=== PATIENT | female | born 1995 | race Caucasian/White ===

== ENCOUNTER 2020-12-20 09:00 | Outpatient (RCR) | payer BC, OTHER, SELFPAY ==
--- NOTE | 2020-12-20 10:00 | BH.SGPN.GN ---
Behaviors/Verbalizations/Mental Status: []Client alert and oriented, casually dressed and groomed. Eye contact good. Motor activity appropriate. Speech within normal limits. Affect congruent, mood anxious and depressed. Thoughts linear, logical, no signs of hallucinations or delusions. Client Response/Progress/Benefit: [] Client first day in IOP tx, appeared to engage well. She was an active participant AEB contributing to discussion, taking notes, and engaging in group activity. Connected with the topic of pitfalls and indicated that pitfalls can prevent be difficult to overcome when they require patience. Client contributed to the group discussion on barriers that prevent from choosing a healthier path to mental wellness such as pitfalls. Group worked together to identify examples of personal pitfalls which included; resentment, anger, isolating, distortions, and unhealthy coping. Client identified overthinking and isolation as personal pitfalls that have inhibited progress in the past. Engaged during the activity by taking on a leadership role, offering encouragement, and providing feedback throughout. Client benefited from group as she learned to better identify potential barriers to improving mental health symptoms. Client will continue IOP tx to increase the consistent understanding of healthy coping skills, reduce mental health sx, and prevent decompensation. Narrative Note: []
--- NOTE | 2020-12-20 11:10 | BH.SGPN.GN ---
Behaviors/Verbalizations/Mental Status: []Client alert and oriented, neatly dressed, hygiene tended to. Eye contact good. Motor activity appropriate. speech and tone WNL. Affect constricted, mood anxious. Thoughts linear, logical, no signs of hallucinations or delusions. Client Response/Progress/Benefit: []Client receptive of session, engaged throughout AEB client listening to discussion and taking notes. Client completed a worksheet where client identified personal pitfalls impacting mental health progress. Client?s pitfalls included: personalization, isolation, lack of communication, lack of boundaries, and resentment. Attentive and contributing during group brainstorm of strategies to overcome pitfalls. Client will work on overcoming her pitfall of lack of boundaries by setting small goals and using opposite action. Benefited from identifying personal pitfalls and strategies to overcome these pitfalls. Client?s first day of IOP tx. Will continue IOP tx to prevent decompensation, learn healthy coping skills, and improve daily functioning. Narrative Note: []
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
--- NOTE | 2020-12-22 13:53 | BH.DR.ITP ---
Initial Treatment Plan - Patient Information Visit Information: ADMISSION DATE: EXPECTED LOS: 4-6 weeks - Problems/Symptoms Problem #1:: Depression and erratic moods Symptom:: Sadness, crying, hopelessness, low motivation, biological disruption of sleep, decreased concentration, guilt, passive thoughts of . History of possible hypomanic symptoms. Problem #2:: Anxiety Symptom:: Rumination, worry, panic attacks at night, flashbacks, reexperiencing, avoidance
== END 2020-12-22 23:59 ==
LOC: BHIOP 09:00
PROVIDERS: Referring Provider Psychiatry & Neurology Psychiatry; Visit Provider Psychiatry & Neurology Psychiatry
DX: F31.9 Bipolar disorder, unspecified (principal); F43.10 Post-traumatic stress disorder, unspecified; F41.8 Other specified anxiety disorders; Z79.899 Other long term (current) drug therapy
CPT/HCPCS: H0035; 90853

== ENCOUNTER 2020-12-23 09:00 | Outpatient (RCR) | payer BC, OTHER, SELFPAY ==
--- NOTE | 2020-12-23 09:00 | BH.SGPN.GN ---
Behaviors/Verbalizations/Mental Status: []Eye contact is good. Alert and oriented. Motor activity is appropriate. Appearance is neat and casual. grooming is appropriate. Speech is Appropriate. Mood is anxious and depressed. Affect is congruent. Thoughts are linear and logical. No evidence of psychosis or hallucinations. Denies any SI, plan, or intent as of this date. Client Response/Progress/Benefit: [] Pt engaged in session AEB listening to others, providing supportive feedback, and willingness to share thoughts and feelings with group. Pt noted feeling ?overwhelmed? on this date and attributes it to ongoing difficulties in managing her online classes. Reports this has been a consistent struggle this semester. Receptive of supportive feedback provided by group. Client did well to identify strategies for improving management of current stressor. Additionally, able to identify current mental health wins which included: plans to spend time with family for [place] and continuing to make her mental health a priority. Able to identify skills used as: thought challenging and opposite action. Recommended ongoing IOP tx to promote healthy change behaviors, improve sx management, and prevent decompensation. Narrative Note: []
--- NOTE | 2020-12-23 10:15 | BH.SGPN.GN ---
Behaviors/Verbalizations/Mental Status: []Client alert and oriented, neatly dressed and groomed. Eye contact good. Motor activity appropriate. Speech within normal limits. Affect congruent, mood dysthymic. Thoughts linear, logical, no signs of hallucinations or delusions. Client Response/Progress/Benefit: []Client responded well to session, attentive during discussion, engaged in activity and provided some input during discussion. Pt stated that change is hard in the moment but often times the outcome is worth it. Pt stated she had to make a change by cutting off a friendship that was unhealthy. Pt reported that friend started sharing client's secrets to others, which proved to client it was a necessary change. Worked with the group to identify barriers to making change. Engaged in activity about identifying emotions that impact change process. Attentive during education on change cycle. Benefited from increased awareness and understanding of emotions, benefits, and barriers related to change. Will continue IOP tx to increase healthy coping, improve confidence and prevent decompensation.
--- NOTE | 2020-12-23 11:15 | BH.SGPN.GN ---
Behaviors/Verbalizations/Mental Status: []Client was alert and oriented, casually dressed and groomed. Eye contact good. Motor activity appropriate. Speech within normal limits. Affect constricted, mood depressed. Thoughts linear, logical, no evidence of hallucinations or delusions. Client Response/Progress/Benefit: []Client responded well to session AEB taking notes and contributing to discussion. Client contributed during psychoeducation on the change process and different emotions in each stage of change. Client also contributed during the activity. Client identified a change she would like to make to improve her mental health which was to have a better sleep schedule. Client reports this will reduce stress and fatigue. Client reports belief she is in the preparation stage as she recognizes the need for change and is willing to take small steps. Client also identified her barriers and participated in a small group discussion to problem-solve solutions to barriers. Appeared to benefit from identifying what stage of change client is in and creating a small goal. First week of IOP tx, actively participating in group. Will continue IOP tx to prevent decompensation, improve mood stability, and learn healthy coping skills. Narrative Note: []
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
--- NOTE | 2020-12-23 21:51 | BH.MTP_ITS ---
Master Treatment Plan - Patient Information Program Physician:: Dr. Aguilar Primary Therapist:: Maribell Pereyra, [facility] - Psychiatric Diagnoses Psychiatric Diagnoses:: Bipolar, NOS; trichotillomania; PTSD; generalized anxiety disorder Diagnosis Code(s):: F 31.9 - Estimated LOS Estimated LOS (in weeks):: 6 Problem/Goal #1 - Problem/Goal #1 Stated Goal:: Client will improve mood stability and decrease depressive symptoms due to Bipolar Disorder through Intensive Outpatient Program. Description of Barriers: Potential barriers to treatment include: negative thought patterns, stress about marriage, inappropriate guilt, low motivation, putting others before herself, and hopelessness. Functional Impact: Pt self-referred to IOP due to increasing depression and anxiety over the past few months. Endorses depressed mood with low motivation, isolation, crying, hopelessness, guilt, decrease sleep, low energy, and decreased concentration. Pt reports passive thoughts of , denies active suicidal ideation, plan or intention. Endorses negative ruminations and panic attacks about one time per week. Pt?s mental health symptoms interfering with social, familial and home functioning. - Objectives Objective #1 Stated Objective: Client will learn and utilize 2-3 healthy coping strategies to manage depressive symptoms and erratic moods. Interventions: Therapist will utilize CBT techniques to assist client with understanding the connection between thoughts, feelings and behaviors. Education will be provided on behavioral activation. Therapist will assist client in learning internal coping strategies to manage depressive symptoms, along with helping client identify triggers. Discharge Criteria: Client will have achieved this goal when can verbalize and practiced at least 2 healthy coping strategies that successfully manage depressive symptoms and reports improved mood stability. Target Date: 02/02/21 Review Date: 01/19/21 Objective #2 Stated Objective: Pt will decrease depressive symptoms AEB pt?s score on the DSM 5 cross-cutting measure and improve pt?s daily functioning. Interventions: Through groups and individual therapy, pt will be provided with education on cognitive distortions, mistaken beliefs, and identifying and combating negative self-talk. Therapist will assist pt with getting back into the activities she once enjoyed as well as increasing healthy coping strategies. Discharge Criteria: Pt will have met this goal when pt?s score on the DSM 5 cross cutting measure for depression has been decreased and per pt?s report daily functioning has improved. Target Date: 02/02/21 Review Date: 01/19/21 Problem/Goal #2 - Problem/Goal #2 Stated Goal:: Stabilize anxiety level while increasing ability to function on daily basis. Description of Barriers: Potential barriers to treatment include: negative thought patterns, stress about marriage, inappropriate guilt, low motivation, putting others before herself, and hopelessness. Functional Impact: Pt self-referred to IOP due to increasing depression and anxiety over the past few months. Endorses depressed mood with low motivation, isolation, crying, hopelessness, guilt, decrease sleep, low energy, and decreased concentration. Pt reports passive thoughts of , denies active suicidal ideation, plan or intention. Endorses negative ruminations and panic attacks about one time per week. Pt?s mental health symptoms interfering with social, familial and home functioning. - Objectives Objective #1 Stated Objective: Client will learn and implement 2-3 calming skills to reduce overall anxiety and manage anxiety symptoms. Interventions: Therapist will teach client calming/relaxation skills and assign client homework which practices relaxation skills daily.? Discharge Criteria: Client will have achieved this goal when can verbalize at least 2 calming skills and implement those skills.? Target Date: 02/02/21 Review Date: 01/19/21 Objective #2 Stated Objective: Pt will decrease anxious symptoms AEB pt?s score on the DSM 5 cross-cutting measure improve pt?s daily functioning. Interventions: Through groups and individual therapy, pt will be provided education about anxiety?s impact on body and common physiological reaction to anxiety. Therapist will teach pt appropriate breathing techniques and build healthy coping skills to manage daily anxieties. Discharge Criteria: Pt will have met this goal when pt?s score on the DSM 5 cross cutting measure for anxiety has been decreased and per pt?s report daily functioning has improved. Target Date: 02/02/21 Review Date: 01/19/21
--- NOTE | 2020-12-29 09:00 | BH.SGPN.GN ---
This psychotherapy group was provided via telehealth using two-way, real-time interactive telecommunication technology between the patients and the provider. The interactive telecommunication technology included audio and video. The patient was offered telemedicine as an option for care delivery during the COVID-19 pandemic and consented to this option. Patient location: [place] Provider located at [facility] Behaviors/Verbalizations/Mental Status: []Client alert and oriented, casual in appearance. Eye contact fair. Motor activity appropriate. Speech within normal limits. Affect congruent. euthymic. Thoughts linear, logical, no signs of hallucinations or delusions. Pt denied thoughts of suicide or intent per pt's symptom tracker. Client Response/Progress/Benefit: [] Patient responded well to session as evidenced by her contributing thoughts feelings and listen attentively to others. Patient stated she was able to set boundaries with her younger sister by telling her sister she did not want to see her at this time. Patient elaborated that her sister is actively using drugs and finds it unhealthy to be around her sister at this time. 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 Patient identified feeling empowered. Patient to continue IOP level care to increase healthy coping skills, challenged her thoughts, and prevent decompensation. Narrative Note: []
--- NOTE | 2020-12-29 10:00 | BH.SGPN.GN ---
Behaviors/Verbalizations/Mental Status: [] Eye contact is good. Motor activity is appropriate. Appearance is casual. Speech is Appropriate. Mood is anxious. Affect is congruent. Thoughts are linear and logical. No evidence of psychosis. Client Response/Progress/Benefit: [] Patient was an active participant in group discussion and activity. Provided insight into discussion on defining self-care and its benefits for mental wellness. Also participated and provided feedback on consequences of not performing self-care which included; consistent stress,increased irritability, physical health issues, and negative impact to relationships, work, and other aspects of functioning. After they identified the benefits and consequences group identified the obstacles and myths associated with self-care which keep them from performing self-care. Peers and pt identified 10 myths of self-care which included; You don't deserve it; You don't need it; Can't do it unless everything else is completed; Its selfish; Time-consuming; [place]; It has to be fun; Self-care ignores others. Pt then joined a small group and challenged these myths among its members. Benefited from group by increasing awareness and benefits of self-care. Pt will continue in IOP to prevent decompensation, increase healthy coping, and stabilize mood. Narrative Note: [] This psychotherapy group was provided via telehealth using two-way, real-time interactive telecommunication technology between the patients and the provider.?The interactive telecommunication technology included audio and video.? ?The patient was offered telemedicine as an option for care delivery during the COVID-19 pandemic and consented to this option. ?Patient location: [place] ?Provider located at [facility]
--- NOTE | 2020-12-29 17:56 | BH.MDN ---
Multi-Disciplinary Note - Note 60-min Individual Time Started:: 11:25 Date: 12/29/20 Purpose of session/treatment goals addressed:: Purpose of session was to address goal 1 from master treatment plan. Eye Contact:: Good Motor Activity:: Appropriate Appearance:: Casual Speech:: Appropriate Mood:: Anxious, Dysthymic Affect:: Congruent Thoughts:: Linear, Logical, No evidence of hallucinations/delusions noted Staff Interventions:: Therapist used open ended questions to elicit pt's current symptoms and stressors. Reviewed homework from last session. Processed pt's challenging past with her . Elicited what would like goal to be in regards to marriage due to it being a signfificant source of stress. Provided support by using active listening and validating emotions. Client Response:: Pt reported she reflected on homework from last session identifying what she gets from her marriage. Pt stated in the beginning of their relationship her brought stability. Pt reported she is hoping to get that back. Pt stated once they started having kids is when the relationship took a turn. Pt reported she has been reflecting on what she can do to change her behavior so she can teach him how to do things that she has just always done. Pt stated sometimes this can be hard for her because she gets frustrated that he is an adult but she has to teach him how to do basic things. Pt reported her is receptive to feedback when it comes to parenting only after a oh shit moment. Pt stated her 's approach to parenting is much different then her own. Pt expressed fear about what her kids would have to go through if she him and the kids had to go to their dads without her. Pt stated if I stay with him at least I'll be able to intervene when he is dealing with the kids. Pt recognizes her reasons to stay at this time are not because she wants to be with him but more out of anxiety and fear of what will happen. Pt shared long history of her being a habitual liar and cheater. Pt stated her had an emotional affiar while she was with her son. Pt reported he had an affair with someone while he was working in [place]. Pt stated they did separate for awhile in 2018. Pt reported she got back with her in February 2020 then again in May 2020. Pt stated he moved from [place] September 2020 to be closer to family. Pt reported her is supposed to move to [place] in July 2021. Pt stated she doesn't really know what she wants with the relationship. Pt reported her believes he is moving to [place] to live with her and the kids, but technically they still are and have not worked out the issues. Pt stated she has significant anxiety about the situation. Pt reported she feels able to leave him at this time because she has her own place, financially stable and finishing school soon. Pt stated she just doesn't know what his reaction will be and that fear holds her back. Pt reported he doesn't show much effort on the daily to be involved in their children's lives. Pt stated significant resentment after finding out that he was facetiming the woman from his most recent emotional affair daily, but only facetimed his children once a week. Pt reported she would like to continue to reflect on what she wants to do about her marriage. Additional goal is to focus on sleep routine by going to bed around 930pm and waking up at 6am. Pt stated she believes getting better sleep will help improve her mood. Risks/Concerns:: Denies current suicidal ideation, plan or intention to date. Progress Toward Goals/Plan:: Progress noted with pt reporting improved self-esteem and belief that she deserves to be treated with respect. Pt continuing to report significant anxiety about relationship issues. Pt to continue IOP to increase healthy coping, challenge distorted thoughts and prevent decompensation. Time Stopped:: 12:30
--- NOTE | 2020-12-31 09:00 | BH.SGPN.GN ---
This psychotherapy group was provided via telehealth using two-way, real-time interactive telecommunication technology between the patients and the provider. The interactive telecommunication technology included audio and video. The patient was offered telemedicine as an option for care delivery during the COVID-19 pandemic and consented to this option. Patient location: [place] Provider located at [facility] Behaviors/Verbalizations/Mental Status: []Client alert and oriented, casually dressed. Eye contact fair. Motor activity appropriate. Speech within normal limits. Affect congruent, mood anxious and euthymic. Thoughts linear, logical, no signs of hallucinations or delusions. Reviewed client?s symptom tracker, no risk or thoughts of suicide ideation, plan, or intent as of 12/31/20. Client Response/Progress/Benefit: []Client responded well to session, engaged throughout and participated in group discussion. Client reported feeling ?motivated? this morning. Client reported working towards her goal of setting healthy boundaries with her younger sister with addiction. Client told her sister that she was unable to help her sister when she called client late last night. Progress noted as client shared she used to personalize her sister?s addiction but no longer blames herself for her sister?s addiction. Client identified using opposite action as a healthy coping skills to increase setting healthy boundaries. Benefited from group as client related to peers and shared personal experiences to others. 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 Client will continue IOP to promote the use of healthy coping skills, improve daily functioning, and set appropriate boundaries within unhealthy relationships. Narrative Note: []
--- NOTE | 2020-12-31 10:10 | BH.SGPN.GN ---
This psychotherapy group was provided via telehealth using two-way, real-time interactive telecommunication technology between the patients and the provider.?The interactive telecommunication technology included audio and video.? ?The patient was offered telemedicine as an option for care delivery during the COVID-19 pandemic and consented to this option. ?Patient location: [place] ?Provider located at [facility] Behaviors/Verbalizations/Mental Status: []Client alert and oriented, casually dressed and groomed. Eye contact good. Motor activity appropriate. Speech within normal limits. Affect congruent, mood depressed. Thoughts linear, logical, no signs of hallucinations or delusions. Client Response/Progress/Benefit: []Client was an engaged participant AEB taking notes and contributing to discussion; however, reduced input compared with prior sessions. Connected with group topic of perspective and the impacts of one?s perspective on mental health. Client noted struggling with societal stigma and past negative experiences impacting her perspective of self and others. Client worked with the group to identify how a negative perspective can impact mental health which included: self-fulfilling prophecy, avoiding or giving up on treatment, not opening up to others, and withdrawing or isolating. Client appeared to benefit from increasing understanding of mental health benefits of a positive perspective and potential consequences to progress when perspective is negative. Progress noted in self-report of improved insight regarding use of distorted thinking patterns. Continues to struggle with combating distortions and boundaries. Client will continue IOP tx to improve healthy coping and prevent decompensation. Narrative Note: []
--- NOTE | 2021-01-05 09:02 | BH.SGPN.GN ---
This psychotherapy group was provided via telehealth using two-way, real-time interactive telecommunication technology between the patients and the provider.?The interactive telecommunication technology included audio and video.? ?The patient was offered telemedicine as an option for care delivery during the COVID-19 pandemic and consented to this option. ?Patient location: [place] ?Provider located at [facility] Behaviors/Verbalizations/Mental Status: []Client alert and oriented, neatly dressed and groomed. Eye contact good. Motor activity appropriate. Speech within normal limits. Affect constricted, mood euthymic and anxious. Thoughts linear, logical, no signs of hallucinations or delusions. Reviewed client?s symptom tracker, no risk for suicidal ideation, plan, or intent as of 01/05/21 Client Response/Progress/Benefit: []Client responded well to session, attentive and engaged. Client reports feeling anxious but a good anxious this morning. 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 Client also shared that the semester is almost over and I can see the light. Client's stressors today are that she is starting to feel sick and her son is sick as well. Also, this week is the anniversary of her grandmother's passing and it will be the first time she will be around family for it. This makes client feel uneasy because client grieves differently than her family. Discussed the importance of setting boundaries and self-care. Appeared to benefit from reflecting on positives. Progress noted in application of coping skills, however, attendance has been variable. Will continue IOP tx to prevent decompensation, reinforce healthy coping skills, and increase self-care. Narrative Note: []
--- NOTE | 2021-01-05 10:11 | BH.SGPN.GN ---
Behaviors/Verbalizations/Mental Status: [] Client alert and oriented, casually dressed and groomed. Eye contact fair to good. Motor activity appropriate. Speech within normal limits. Affect constricted, mood dysthymic. Thoughts linear, logical, no signs of hallucinations or delusions Client Response/Progress/Benefit: []Client mostly engaged in session AEB client providing some input when prompted and taking notes; however appears less engaged when attending via telehealth than in-person. Client shared connecting with the importance of setting boundaries, noting that ?boundaries help prevent from continuing to let ourselves down in the long run?. Client attentive as group worked on identifying barriers to setting healthy boundaries. These included: fear of abandonment, unhealthy habits, difficulties setting boundaries with self, ?what if? thoughts, and not knowing how. Shared a personal barrier to boundary setting that she has experienced in the past is negative responses when attempting to do so. Listened as participants provided examples. Client seemed to benefit from increased awareness of how boundaries impact mental health. Will continue IOP tx to improve use of healthy coping, improve boundary setting and self-advocacy, reduce mental health sx, and prevent decompensation. Narrative Note: []
--- NOTE | 2021-01-05 11:20 | BH.SGPN.GN ---
This psychotherapy group was provided via telehealth using two-way, real-time interactive telecommunication technology between the patients and the provider.?The interactive telecommunication technology included audio and video.? ?The patient was offered telemedicine as an option for care delivery during the COVID-19 pandemic and consented to this option. ?Patient location: [place] ?Provider located at [facility] Behaviors/Verbalizations/Mental Status: []Client alert and oriented, casual dress, hygiene appropriate. Eye contact fair. Motor activity appropriate. Speech within normal limits. Affect constricted, mood dysthymic. Thoughts linear, logical, no signs of hallucinations or delusions. Client Response/Progress/Benefit: []Client responded well to session, connecting with peers and receptive to supportive statements. Client engaged in the boundary self-assessment activity and attentive during psychoeducation on the different boundary styles. Client reported she is most often rigid because she stays detached within her relationship. Identified she does this as a form of protection so she can't be hurt as bad when the relationship doesn't go well. Client stated she recognizes consequence of being rigid is feeling lonely. Client participated in brainstorming strategies to improve boundary setting. Seemed to benefit from increased awareness of how current boundary style impacts mental health and learning different strategies to improve boundary style. Client to continue IOP tx to increase healthy coping, improve confidence and prevent decompensation.
--- NOTE | 2021-01-05 11:46 | PCM.BH.PN_ITS ---
Progress Note Diagnosis/Plan: History of Present Illness/Interim History: [] Patient is a 25-year-old female who is seen in follow-up by telehealth in the [facility] behavioral health IOP program. I last saw the patient 2 weeks ago and at that time she was given a prescription for Wellbutrin and doxepin. The patient had trouble picking up the prescription so currently she is on her third day of taking the Wellbutrin. She took the doxepin only once and she did sleep really well but she felt she was much too groggy during the night and the next day so she discontinued the doxepin. Her sleep is still not good but in part this is due to her kids waking up at night lately and she does not want to be groggy if they have a potty training accident or something like that. Her energy level is better since starting the Wellbutrin and it is easier for her to her to get up in the morning. She feels she is learning good skills in the IOP program and it is really benefiting her. Her ongoing stressors of her being in [place] and her being in nursing school besides taking care of 2 young children remain. She has not had any panic attacks since I last saw her. She denies any passive thoughts of , suicidal or homicidal ideation, hallucinations or delusions. The patient states she has tried melatonin to help with sleep and it helps somewhat. Current Psychiatric Medications: [] Wellbutrin XL 150 mg p.o. every morning (x3 days only); doxepin 10 mg p.o. nightly (took it once only and then stopped it).; Melatonin 10 mg p.o. nightly Mental Status Examination: [] The patient is seen via telehealth and is casually dressed and groomed with good hygiene and appears normal for stated age. Eye contact is good and speech is normal rate and rhythm and fluent with no pressure. Mood is mildly depressed. Affect is mildly constricted. Thought process is goal-directed and organized. Thought content: There is no evidence of passive thoughts of , suicidal ideation, homicidal ideation, hallucinations or delusions. There is no evidence of symptoms of frank. Judgment is intact. Insight is good. Impulsivity is low. Diagnoses: [] [place] I: [] Bipolar, NOS (F 31.9); PTSD; generalized anxiety disorder; trichotillomania [place] II: [] Negative [place] III: [] Negative [place] IV:[]] Primary support and school issues Plan: [] Patient will continue the IOP program at [facility] as the structure, support, education, individual and group therapy will hopefully prevent worsening of the patient's symptoms which might require hospitalization. She felt safe during the interview and if it anytime she does not feel safe she will let us know or go to the emergency room. The risk, options, possible complications and side effects of medications were again discussed with the patient and she understands accepts these. No medication changes were made today as the patient does not wish to try trazodone or any other aid for sleep besides the melatonin. Patient wants to wait and see if her sleep improves as the Wellbutrin kicks in. Patient understands that the Wellbutrin could trigger symptoms of frank and she will let us know if she feels this happens but nothing has happened yet. She will continue to follow-up with her outpatient psychiatric and medical providers. I will see the patient in follow-up in 2 weeks.
--- NOTE | 2021-01-12 16:52 | BH.COMM ---
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 Pt stated she is not feeling well and hopes to return next week. Pt states she will keep us informed.
--- NOTE | 2021-01-19 09:05 | BH.SGPN.GN ---
Behaviors/Verbalizations/Mental Status: [] Eye contact is good. Motor activity is appropriate. Appearance is casual. Speech is Appropriate. Mood is depressed. Affect is flat. Thoughts are linear and logical. No evidence of psychosis. Reviewed daily check in sheet and no reports of suicidal ideations or intent. Client Response/Progress/Benefit: [] Pt participated when prompted. Attentive. Emotion for today is overwhelmed and anxious. She discussed several psychosocial stressors in the past week including a medical emergency and significant family issues. She reports that her life is getting less hectic. Discussed how these stressors impacted her mental health and her recovery. She is motivated to get back on track for her mental health however reports being worn out. No progress noted due to stressors. Benefited from group support and encouragement. Will continue in IOP to improve functioning and increase healthy coping skills. Narrative Note: [] This psychotherapy group was provided via telehealth using two-way, real-time interactive telecommunication technology between the patients and the provider. The interactive telecommunication technology included audio and video. The patient was offered telemedicine as an option for care delivery during the COVID-19 pandemic and consented to this option. Patient location: [place] Provider located at [facility]
--- NOTE | 2021-01-19 10:00 | BH.SGPN.GN ---
Behaviors/Verbalizations/Mental Status: [] Eye contact is good. Motor activity is appropriate. Appearance is casual. Speech is Appropriate. Mood is depressed. Affect is flat. Thoughts are linear and logical. No evidence of psychosis Client Response/Progress/Benefit: [] Pt was an active participant in group discussion and activity. Attentive during psychoeducation. Along with peers was able to identify barriers to taking action on her mental health which included; fear of failure, the unknown, change, one's environment, past negative experiences, being passive, and fear of vulnerability. Identified several symptoms and stressors that she would feels are holding her back from progress such as anxiety, fear of failure, toxic people, and unhealthy coping. Benefited from increased self-awareness of obstacles. Will continue in IOP to maintain safety, improve functioning, and increase healthy coping. Narrative Note: [] This psychotherapy group was provided via telehealth using two-way, real-time interactive telecommunication technology between the patients and the provider. The interactive telecommunication technology included audio and video. The patient was offered telemedicine as an option for care delivery during the COVID-19 pandemic and consented to this option. Patient location: [place] Provider located at [facility]
--- NOTE | 2021-01-19 11:07 | BH.SGPN.GN ---
This psychotherapy group was provided via telehealth using two-way, real-time interactive telecommunication technology between the patients and the provider. The interactive telecommunication technology included audio and video. The patient was offered telemedicine as an option for care delivery during the COVID-19 pandemic and consented to this option. Patient location: [place] Provider located at [facility] Behaviors/Verbalizations/Mental Status: []Client alert and oriented, neatly dressed and groomed. Eye contact good. Motor activity appropriate. Speech within normal limits. Affect constricted, mood dysthymic. Thoughts linear, logical, no signs of hallucinations or delusions. Client Response/Progress/Benefit: []Client responded well to session, taking notes and participating in worksheet discussion. Client connected with the zones of action/change and reported that making sustainable change comes from stepping out of one?s comfort zone into the learning zone. Client set a goal to gain control over ?not bringing up the past as much.? Client wants to be able to develop a personal filter by taking time to think before she responding and communicating triggers. Client believes she will need support from family to accomplish this goal. Appeared to benefit from identifying a small goal to benefit mental health. Will continue IOP tx to prevent decompensation, improve mood stability, and reduce intensity of symptoms. Narrative Note: []
--- NOTE | 2021-01-21 15:29 | BH.MDN_ITS ---
Multi-Disciplinary Note - Note 60-min Individual Time Started:: 13:30 Date: 01/21/21 Purpose of session/treatment goals addressed:: Purpose of session was to address goals 1 and 2 from treatment plan. Eye Contact:: Good Motor Activity:: Appropriate Appearance:: Casual Speech:: Appropriate Mood:: Anxious Affect:: Congruent Thoughts:: Linear, Logical, No evidence of hallucinations/delusions noted Staff Interventions:: Therapist used open ended questions to elicit pt's current symptoms and stressors. Therapst processed signficiant stressors in the last week. Therapist provided support and validated emotions. Elicited what pt wants to focus on as a goal. Provided pt with homework to reflect what her can do to start earning trust back. Client Response:: Pt reported the last couple weeks have been a challenge. Pt st ated she missed group two weeks ago because her kids were sick and last week because she had emergency appendix removal surgery. Pt reported it's always something. Pt expressed frustation with her because he did not fly here from [place] to help watch the children, instead having to pay her mom to help. Pt stated there is no excuse her can give for not being willing to fly to help. Pt reported for the last 4 days she has just been feeling neutral about the situation. Pt stated her marriage is a continued signficiant stressor for her. Pt reported she believes if she didn't have this relationship stress she doesn't believe her mental health would be nearly as bad. Pt reported she would like to learn how to be able to move on from the past trauma from this relationship. Pt stated she needs to be able to let go of her 's past infidelities so she doesn't constantly let the flashbacks put her in a negative state. Through further dicussion pt identified if she didn't have kids she would have already left him. Identified wanting to stay out of fear of his response, not wanting to have split homes for her kids and worry on how her woudl parent thier children when she isn't around. With assistance from therapsit pt able to recognize she didn't identify positive reasons for wanting to stay, identified desire to stay out of fear. Pt agreeable to work on homework of reflecting what she thinks her can do to start showing her commitment to change and build back trust. Risks/Concerns:: Denies current suicidal ideation, plan or intention to date. Progress Toward Goals/Plan:: Progress noted with pt reporting starting to be able to visualize positive events in her life, not constantly being surrounded by negative possibilities. Additionally pt reporting Wellbutrin seems to be helping her mood. Continues to struggle with motivation, concentration and anxiety. Pt to continue IOP to increase healthy coping, improve confidence in decision making and prevent decompensation. Time Stopped:: 14:30
== END 2021-01-21 23:59 ==
LOC: BHIOP 09:00
PROVIDERS: Referring Provider Psychiatry & Neurology Psychiatry; Visit Provider Psychiatry & Neurology Psychiatry
DX: F31.9 Bipolar disorder, unspecified (principal); F41.1 Generalized anxiety disorder; F63.3 Trichotillomania; Z79.899 Other long term (current) drug therapy
CPT/HCPCS: H0035; 90837; 90853

== ENCOUNTER 2021-01-10 19:01 | Observation (INO) | payer OTHER, BC, SELFPAY ==
[2021-01-10] VITALS (7 sets, daily range): BP systolic 98–134; BP diastolic 58–88; PULSE 77–109; RESP 16–18; TEMP 36.4–36.9; O2SAT 95–100; BMI 25.8
--- NOTE | 2021-01-10 19:16 | CT_ITS ---
We are attempting to reach an attending provider to discuss findings. An addendum with communication details will be sent when the communication is complete. INDICATION: appy EXAMINATION: CT Abdomen And Pelvis W/ Contrast Injection TECHNIQUE: Helically acquired images were obtained of the abdomen and pelvis after IV contrast. A radiation dose optimization technique was used for this scan. IV Contrast dosage and agent: 100 cc [id number] Oral contrast: None. COMPARISON: None. FINDINGS: Visualized lung bases: Bibasilar atelectasis. Liver: Unremarkable Gallbladder: Surgically absent. Spleen: Unremarkable Pancreas: Unremarkable Adrenal Glands: Unremarkable Kidneys: Unremarkable Vasculature: Unremarkable GI Tract: There is a 6 mm appendicolith at the base of the appendix. The appendix is dilated measuring up to 1.1 cm. No evidence of perforation. No free fluid. Lymphadenopathy: None Peritoneum: No ascites. Bladder: Unremarkable Reproductive organs: Unremarkable Bones/Soft tissues: No suspicious osseous or soft tissue lesions CT/Abdomen/Pelvis W IV Cont ONLY IMPRESSION: Acute nonruptured appendicitis. Electronically Signed: Richardson Gordon MD at 20:31 EDT Tel , Service support ,
[2021-01-10] MEDS: Morphine 4 MG/ML Syringe IV (19:23)
[2021-01-10] MEDS: Ondansetron 4 MG/2 ML Vial IV ×2 (19:23→23:57)
[2021-01-10 19:24] LABS: Bacteria 0 SEEN /hpf (None Seen); Mucous, Urine 0 SEEN /hpf (<or=2+); Red Blood Cells-Urine 0 SEEN /hpf (0-5)
[2021-01-10] MEDS: 0.9% Normal Saline 1,000 ML 1000 ML IV (19:24)
[2021-01-10 19:27] LABS: Absolute Lymphocyte Count 3.67 X10^3/uL (0.83-4.51); Absolute Neutrophil Count 7.4 X10^3/uL (2.0-7.7); Basophil# 0.06 X10^3/uL; Basophil% 0.5 % (0-1); Eosinophil# 0.33 X10^3/uL; Eosinophils% 2.7 % (0-5); Hematocrit 42.6 % (37-47); Hemoglobin 13.7 g/dL (12.0-15.0); Lymphocyte # 3.67 X10^3/ul (0.83-4.51); Lymphocyte % 29.6 % (19-41); Mean Corp Hgb Conc 32.2 g/dL (32-36); Mean Corpuscular Hgb 29.7 pg (27.0-32.0); Mean Corpuscular Volume 92.4 fL (81-99); Mean Platelet Vol. 9.2 fl (6.2-12.0); Monocyte# 0.94 X10^3/uL; Monocyte% 7.6 % (0-10); NRBC Flagged by Analyzer 0 % (0-5); Neutrophil # 7.36 X10^3/uL (2.7-7.7); Neutrophil % 59.3 % (47-70); Platelet Count 354 K/mm3 (150-450); RBC Distribution Width SD 40.8 fl (35.1-43.9); Red Blood Count 4.61 M/mm3 (4.2-5.4); White Blood Count 12.4 K/mm3 (4.4-11.0)
--- NOTE | 2021-01-10 19:32 | ED.DCSUM_ITS ---
History of Present Illness Chief Complaint: Flank Pain Informant: Patient Onset: Today Context: Gradual Onset Timing: Continuous Current Severity: Moderate Maximum Severity: Moderate Narrative: Patient is a 25-year-old female is otherwise healthy the presents to the emergency department with right lower quadrant pain. She states she woke this morning had a dull ache in her right lower quadrant. She thought she may been constipated. She states she has been drinking a lot of water, but is been nauseated. She states throughout the day, the pain has migrated deeper into the right lower quadrant and she has been having increasing pain. She states she is had lack of appetite. She does admit to some chills. She does not think she is had fever. She states it hurts to twist and move. Patient does have history of prior cholecystectomy and partial hysterectomy Prior similar symptoms: No Recent Illness/Hospitalization: No Past Medical History - Allergies and Home Meds Allergies/Adverse Reactions: Allergies No Known Allergies Allergy (Verified 01/10/21 19:04) Primary Care Physician: Care Physician,No Primary [Primary Care Provider] - Prior records reviewed: Yes Past Medical History: None Surgical History: cholecystectomy, hysterectomy Smoking Status: Never smoker Review of Systems General: Reports: Chills. Denies: Fever, Sweats Eyes: Denies: Visual changes - bilaterally, Diplopia ENT: Denies: Rhinorrhea, Sore throat Cardiovascular: Denies: Chest pain, Palpitations Respiratory: Denies: Dyspnea, Cough, Dyspnea on exertion Gastrointestinal: Reports: Abdominal pain, Nausea. Denies: Vomiting, Diarrhea, Melena, Hematochezia Genitourinary: Denies: Dysuria, Hematuria, Frequency Musculoskeletal: Denies: Back pain, Extremity Pain Skin: Denies: Rash, Wounds Neurological: Denies: Headache, Weakness, Numbness Physical Exam Vital Signs/Narrative: Vital Signs Temp Pulse Resp BP Pulse Ox 01/10/21 19:02 97.9 F 99 18 120/88 H 100 Inital Vital Signs reviewed: Yes General: Well nourished, Well developed, No Acute Distress Head: Normocephalic, Atraumatic Eyes: Perrl, EOMI ENT: Moist mucous membranes, No rhinorrhea Neck: Supple, Nontender Cardiovascular: Regular rate, Regular rhythm, No murmurs Respiratory: No distress, CTA bilaterally, Chest nontender Abdomen: Soft, Nondistended, Normal bowel sounds, Tender, Guarding Back: Nontender, Normal Inspection Extremities: Nontender, No edema Skin: Normal color, No rash Neurological: Alert, Oriented x3, Cranial nerves II-XII grossly intact, Normal Strength, Normal Sensation Psychological: Normal affect, Normal Mood Diagnostic/Tx/Re-eval Clinical Impression(s) from Imaging Studies Abdomen/Pelvis CT 01/10/21 19:16 IMPRESSION: Acute nonruptured appendicitis. Electronically Signed: Richardson Gordon MD at 20:31 EDT Tel , Service support , ADDENDUM: 01/10/212039 IMPRESSION: Acute nonruptured appendicitis. N.B. : The above information has been verbally conveyed by Richardson Gordon MD to Dr Betzy MD, on 01/10/2021 20:33:49 (ET). Electronically Signed: Richardson Gordon MD at 20:31 EDT Tel , Service support , Abnormal Lab Results 01/10/21 01/10/21 01/10/21 19:15 19:15 19:15 WBC 12.4 H RBC 4.61 Hgb 13.7 Hct 42.6 MCV 92.4 MCH 29.7 MCHC 32.2 RDW Std Deviation 40.8 RDW Coeff of Omar 12.0 Plt Count 354 MPV 9.2 Immature Gran % (Auto) 0.300 Neut % (Auto) 59.3 Lymph % (Auto) 29.6 [place] % (Auto) 7.6 Eos % (Auto) 2.7 Baso % (Auto) 0.5 Absolute Neuts (auto) 7.4 Absolute Lymphs (auto) 3.67 Nucleated RBC % 0 Sodium 140 Potassium 3.7 Chloride 106 Carbon Dioxide 31.0 Anion Gap 3 L BUN 12 Creatinine 0.97 Estim Creat Clear Calc 85.47 Est GFR (MDRD) Af Amer 89 Est GFR (MDRD) Non-Af 74 BUN/Creatinine Ratio 12.4 Glucose 90 Calcium 8.9 Total Bilirubin 0.20 AST < 3 L ALT 22 Alkaline Phosphatase 87 Total Protein 7.4 Albumin 3.9 Globulin 3.5 Albumin/Globulin Ratio 1.1 Urine Color Yellow Urine Clarity Sl. Cloudy Urine pH 7.0 Ur Specific [place] 1.010 Urine Protein Negative Urine Glucose (UA) Normal Urine Ketones Negative Urine Occult Blood Negative Urine Nitrite Negative Urine Bilirubin Negative Urine Urobilinogen 4 H Ur Leukocyte Esterase Negative Urine RBC 0 SEEN Urine WBC 0-5 SEEN Ur Squamous Epith Cells 5-10 SEEN Urine Bacteria 0 SEEN Urine Mucus 0 SEEN Urine Test Negative - Medical Decision Making The patient presents with right lower quadrant pain that is gotten worse throughout the day. She does have voluntary guarding. She is also nauseated. IV was established. Screening labs are obtained. Patient does have mild leukocytosis. Urine shows no evidence of infection. Patient underwent CT of the abdomen pelvis which does demonstrate acute appendicitis, but no evidence of perforation. She was covered with broad-spectrum antibiotics and discussed with Dr. Rodriguez who will evaluate the patient for operative intervention. Impression 1. Acute appendicitis ED Disposition - Plan for ED Patient: Referrals: Care Physician,No Primary [Primary Care Provider] -
[2021-01-10 19:40] LABS: Color, Urine Yellow (Yellow); Glucose, Dipstick Normal (Normal); Ketone-Dipstick Negative (Negative); Leukocyte Esterase-Dipstick Negative /ul (Negative); Nitrite-Dipstick Negative (Negative); Occult Blood-Urine Negative /ul (Negative); Protein-Dipstick Negative (Negative); Urine Bilirubin Dipstick Negative (Negative); Urine Clarity Sl. Cloudy (Clear); Urine Urobilinogen 4 mg/dl (Normal)
[2021-01-10 19:43] LABS: Internal QC Validated? YES +Cl - CLEAR BKGD; Pregnancy, Urine Negative Negative
[2021-01-10 19:47] LABS: ALB/GLOB Ratio 1.1 RATIO (0.9-2.4); AST(SGOT) < 3 U/L (15-37); Alanine Aminotransfer ALT/SGPT 22 U/L (13-56); Albumin, Serum 3.9 g/dL (3.2-5.0); Alkaline Phosphatase 87 U/L (45-117); Anion Gap 3 (5-15); BUN 12 mg/dL (7-18); BUN/Creat Ratio 12.4 RATIO (10-20); Calcium,Total 8.9 mg/dL (8.5-10.1); Chloride 106 mmol/L (98-107); Creatinine, Serum 0.97 mg/dL (0.55-1.02); EST Glomerular Filtration Rate 74 mL/min (>60); Est Glom Filt Rate - Afr Amer 89 mL/min (>60); Estimated Creatinine Clearance 85.47 ml/min; Globulin 3.5 g/dL (2.2-4.2); Glucose 90 mg/dL (74-106); Potassium 3.7 mmol/L (3.5-5.1); Protein, Total 7.4 g/dL (6.4-8.2); Sodium Level 140 mmol/L (136-145)
[2021-01-10 19:51] LABS: Squamous Epithelial Cells - UA 5-10 SEEN /hpf (5-10); White Blood Cells 0-5 SEEN /hpf (0-5)
--- NOTE | 2021-01-10 21:03 | CON.PCM_ITS ---
Problem List (1) Acute appendicitis Status: Acute Qualifiers: Acute appendicitis type: with generalized peritonitis Appendicitis gangrene presence: unspecified whether gangrene present Appendicitis perforation presence: unspecified whether perforation present Appendicitis abscess presence: without abscess Qualified Code(s): K35.20 - Acute appendicitis with generalized peritonitis, without abscess Reason for Consult Date of Consultation: 01/10/21 History of Present Illness: Patient is a 25-year-old female is otherwise healthy the presents to the emergency department with right lower quadrant pain. She states she woke this morning had a dull ache in her right lower quadrant. She thought she may been constipated. She states she has been drinking a lot of water, but is been nauseated. She states throughout the day, the pain has migrated deeper into the right lower quadrant and she has been having increasing pain. She states she is had lack of appetite. She does admit to some chills. She does not think she is had fever. She states it hurts to twist and move. Patient does have history of prior cholecystectomy and partial hysterectomy CT scan was read as 6 mm appendicolith at the base of the appendix appendix is dilated up to 1.1 cm no evidence of perforation no free fluid. Past Medical History Medical History: Medical History (Last Reviewed 01/10/21 @ 21:[address] Kenny Rodriguez MD) Bipolar disorder F31.9 NOS Generalized anxiety disorder F41.1 PTSD (post-traumatic stress disorder) F43.10 Trichotillomania F63.3 Allergies No Known Allergies Allergy (Verified 01/10/21 19:04) Home Medications: Ambulatory Orders Medication Instructions Recorded Bupropion HCl [Wellbutrin Xl] 150 mg PO BREAKFAST 30 Days #30 12/22/20 tab.er.24h Surgical History: cholecystectomy, hysterectomy Smoking Status: Never smoker - *Family History Maternal History Items: No pertinent history Review of Systems Constitutional: Reports: Anorexia Cardiovascular: Denies: Chest Pain, Chest Pressure, Chest Tightness, Palpitations Respiratory: Denies: Cough, Hemoptysis, Shortness of breath at rest, Shortness of breath upon exertion, Wheezing Gastrointestinal: Reports: Abdominal Pain - Physical Exam Vitals/I&O's: Vital Signs Temp Pulse Resp BP Pulse Ox 97.9 F 99 18 120/88 H 100 01/10/21 19:02 01/10/21 19:02 01/10/21 19:02 01/10/21 19:02 01/10/21 19:02 Oxygen Delivery Method Room Air Weight: 165 lb Body Mass Index (BMI) 25.8 General: Alert, Oriented x3 Lungs: Clear to auscultation Cardiovascular: Regular rate, Regular Rhythm, No murmurs Abdomen: Tender - Positive rebound positive Rovsing sign positive heeltap Pain is somewhat out of proportion for nonruptured appendix on the CAT scan Laboratory Results 01/10/21 19:15: WBC 12.4 H, RBC 4.61, Hgb 13.7, Hct 42.6, MCV 92.4, MCH 29.7, MCHC 32.2, RDW Std Deviation 40.8, RDW Coeff of Omar 12.0, Plt Count 354, MPV 9.2, Immature Gran % (Auto) 0.300, Neut % (Auto) 59.3, Lymph % (Auto) 29.6, [place] % (Auto) 7.6, Eos % (Auto) 2.7, Baso % (Auto) 0.5, Absolute Neuts (auto) 7.4, Absolute Lymphs (auto) 3.67, Nucleated RBC % 0 01/10/21 19:15: Sodium 140, Potassium 3.7, Chloride 106, Carbon Dioxide 31.0, Anion Gap 3 L, BUN 12, Creatinine 0.97, Estim Creat Clear Calc 85.47, Est GFR (MDRD) Af Amer 89, Est GFR (MDRD) Non-Af 74, BUN/Creatinine Ratio 12.4, Glucose 90, Calcium 8.9, Total Bilirubin 0.20, AST < 3 L, ALT 22, Alkaline Phosphatase 87, Total Protein 7.4, Albumin 3.9, Globulin 3.5, Albumin/Globulin Ratio 1.1 01/10/21 19:15: Urine Color Yellow, Urine Clarity Sl. Cloudy, Urine pH 7.0, Ur Specific [place] 1.010, Urine Protein Negative, Urine Glucose (UA) Normal, Urine Ketones Negative, Urine Occult Blood Negative, Urine Nitrite Negative, Urine Bilirubin Negative, Urine Urobilinogen 4 H, Ur Leukocyte Esterase Negative, Urine RBC 0 SEEN, Urine WBC 0-5 SEEN, Ur Squamous Epith Cells 5-10 SEEN, Urine Bacteria 0 SEEN, Urine Mucus 0 SEEN, Urine Test Negative Current Medications Piperacillin Sod/Tazobactam (Sod 4.5 gm/ Sodium Chloride) 100 mls @ 200 mls/hr IV X1 ONE Stop: 01/10/21 21:07 Assessment/Plan All Active Problems (Last Updated 12/22/20 @ 14:42 by Marika Xiong) Acute appendicitis (Acute) Plan will be to perform a laparoscopic appendectomy. Risk to include bleeding infection possible delayed infection. I told the patient that there is a high likelihood given her pain level that this is ruptured despite what the CAT scan says. Patient understands that given her pain level there is a chance that there could be more going on than just with the CAT scan shows. All questions asked were answered and she is willing to proceed.
--- NOTE | 2021-01-10 21:05 | APP_PTH ---
PATIENT: MALDONADO ELLIS LOC: MS3 U#:[id number] AGE/SX: 25/F [place] [facility] [place]: Dr. Kenny Rodriguez MD : 1995 BED: 1 DIS: 01/11/2021 SPEC #: [id number] RECD: 01/11/21 07:36 STATUS: DARI REClarice #: [id number] DOMINIQUE: 01/10/21 21:[address]: Kenny Rodriguez DEPT: SURGICAL PATHOLOGY RECD BY: Ashly Smiley ENTERED: 01/11/21 12:33 SP TYPE: APPENDIX OTHR DR: No Primary Care Phys Tissues: Appendix, NOS Procedures: Surgery Specimen Level III HEADER OPERATION: Laparoscopic appendectomy PRE-OP DIAGNOSIS: Acute appendicitis TISSUE SUBMITTED: Appendix MICROSCOPIC DIAGNOSIS Appendix, appendectomy: Acute appendicitis. Acute serositis. AM:damion 01/12/2021 MICROSCOPIC DESCRIPTION Slides are reviewed. GROSS DESCRIPTION Received in fixative is one container labeled with the patient's name and designated appendix. The specimen consists of an appendix measuring 5.5 cm in length and up to 1 cm in diameter. The attached periappendiceal adipose tissue measures up to 3 cm in width. The serosal surface is focally congested. No obvious perforation is identified. The lumen is filled with hemorrhagic fecal material. No fecalith is identified. [place] sections are submitted in one cassette. / SJ:damion 01/11/21 TC:2 CPT: 65774
--- NOTE | 2021-01-10 21:56 | OP.PCM_ITS ---
Problem List (1) Acute appendicitis Status: Acute Qualifiers: Acute appendicitis type: with generalized peritonitis Appendicitis gangrene presence: without gangrene Appendicitis perforation presence: with perforation Appendicitis abscess presence: without abscess Qualified Code(s): K35.20 - Acute appendicitis with generalized peritonitis, without abscess Report of Operation Date of Procedure: 01/10/21 Pre-Operative Diagnosis: Acute appendicitis Post-Operative Diagnosis: Same Surgery/Procedure Performed:: Laparoscopic appendectomy Type of Anesthesia:: General Anesthesiologist: John Sparks Specimen's removed: Appendix Estimated Blood Loss (mL): < 25 cc Description of Procedure: Patient was brought into the operating room. Placed in the supine position. Under excellent general endotracheal ovation the abdomen was sterilely prepped and draped in usual fashion. Local was injected infraumbilically. Dissection was carried down to the fascia. The fascia was grasped with a [place]. Varies needle was placed inside the abdomen. The abdomen was insufflated to 15 torr. A 10/12 trocar was placed without difficulty. Suprapubic #5 trochars placed at left lower quadrant #5 trocar was placed. Both of these under direct visualization without injury to underlying structures. Patient was placed in the headdown and rotated to the left position. Patient was noted to have acute appendicitis which was not ruptured and there was no gangrene. I took the mesoappendix down with the Enseal. I transected the base the appendix with a 45 linear cutter. I placed a specimen bag delivered through the umbilical port without difficulty. I have excellent hemostasis. I irrigated out the pelvis. There was no pus identified. I ran the small bowel. There was no Meckel's diverticulum identified. Trochars were removed under direct visualization good in the stasis was noted. The fascia the umbilical port was closed with a [id number] stitch of 0 Vicryl. Skin incisions were closed with subcuticular stitches of 4-0 Monocryl. Steri-Strips were applied. Sterile dressings were applied. The patient tolerated the procedure well. - Admit VTE Documentation VTE Present on Admission: No VTE Mechan Device Prophylaxis: SCD's VTE Pharm Prophylaxis ordered?: No Reason prophylaxis not ordered:: Treatment Not Indicated
[2021-01-10] MEDS: Bupivacaine Mpf 0.5% 30 ML VIAL (22:03)
[2021-01-10] MEDS: 0.9% Normal Saline 1,000 ML 75 ML IV (23:18)
[2021-01-10] MEDS: HYDROmorphone 0.5 MG/0.5 ML SYRINGE IV (23:57)
[2021-01-11 01:28] VITALS: BP 104/64; PULSE 90; RESP 16; TEMP 36.7; O2SAT 98
[2021-01-11 01:32] VITALS: RESP 18; O2SAT 96
[2021-01-11 03:05] VITALS: BP 113/66; PULSE 87; RESP 16; TEMP 36.7; O2SAT 98
[2021-01-11] MEDS: HYDROmorphone 0.5 MG/0.5 ML SYRINGE IV ×2 (03:09→06:57)
[2021-01-11 06:02] LABS: Absolute Neutrophil Count 9.5 X10^3/uL (2.0-7.7); Basophil# 0.03 X10^3/uL; Basophil% 0.3 % (0-1); Hematocrit 38.3 % (37-47); Hemoglobin 12.4 g/dL (12.0-15.0); Lymphocyte % 6.6 % (19-41); Mean Corp Hgb Conc 32.4 g/dL (32-36); Mean Corpuscular Hgb 29.7 pg (27.0-32.0); Mean Corpuscular Volume 91.6 fL (81-99); Mean Platelet Vol. 9.3 fl (6.2-12.0); Monocyte# 0.33 X10^3/uL; Monocyte% 3.1 % (0-10); NRBC Flagged by Analyzer 0 % (0-5); Neutrophil # 9.45 X10^3/uL (2.7-7.7); Neutrophil % 89.6 % (47-70); Platelet Count 290 K/mm3 (150-450); RBC Distribution Width SD 40.8 fl (35.1-43.9); Red Blood Count 4.18 M/mm3 (4.2-5.4); White Blood Count 10.6 K/mm3 (4.4-11.0)
[2021-01-11 06:48] VITALS: BP 105/59; PULSE 62; RESP 16; TEMP 36.6; O2SAT 99
[2021-01-11 06:54] LABS: ALB/GLOB Ratio 1.2 RATIO (0.9-2.4); AST(SGOT) 56 U/L (15-37); Alanine Aminotransfer ALT/SGPT 125 U/L (13-56); Albumin, Serum 3.5 g/dL (3.2-5.0); Alkaline Phosphatase 86 U/L (45-117); Anion Gap 7 (5-15); BUN 9 mg/dL (7-18); BUN/Creat Ratio 10.1 RATIO (10-20); Calcium,Total 8.6 mg/dL (8.5-10.1); Chloride 107 mmol/L (98-107); Creatinine, Serum 0.89 mg/dL (0.55-1.02); EST Glomerular Filtration Rate 81 mL/min (>60); Est Glom Filt Rate - Afr Amer 98 mL/min (>60); Estimated Creatinine Clearance 93.15 ml/min; Globulin 2.8 g/dL (2.2-4.2); Glucose 123 mg/dL (74-106); Potassium 4.3 mmol/L (3.5-5.1); Protein, Total 6.3 g/dL (6.4-8.2); Sodium Level 139 mmol/L (136-145)
--- NOTE | 2021-01-11 07:45 | DCINST_ITS ---
Discharge Diet: Light diet - advance as tolerated - if you have questions about your diet instructions, please talk to you doctor. Discharge Activity: May Not Drive - for 3-5 days or while taking narcotic pain meds. May shower in (days): 1 Call your doctor if your incision/area has: Continuous Slow Oozing, Sudden Increased Bleeding, Increased Pain/ Swelling, Increased Redness, Foul Smelling Discharge Call your doctor if you observe: Fever of 101 or Higher Suture Line Care: Avoid Pulling/Pushing, Avoid Pinching/Bending Additional Dressing/Incision Instructions:: Keep dressing clean and dry. Change or remove dressing in 2 days. Leave steri strips for 1 week. May protect with a gauze bandaid. Medications to take at Discharge Bupropion HCl [Wellbutrin Xl] 150 mg PO BREAKFAST 30 Days #30 tab.er.24h 12/22/20 Oxycodone HCl/Acetaminophen [Percocet 5/325] 1 - 2 tablet PO Q4H PRN PRN 5 Days #30 tablet 01/10/21 Allergies/Adverse Reactions: Allergies No Known Allergies Allergy (Verified 01/10/21 19:04) The following prescriptions were given: Oxycodone HCl/Acetaminophen [Percocet 5/325] 1 - 2 tablet PO Q4H PRN PRN 5 Days #30 tablet PRN Reason: Pain Transmission Status: Received by [facility]/pharmacy #[id number] Primary Care Physician: Care Physician,No Primary [Primary Care Provider] - Test Results: Test results from this visit will be discussed in further detail at your follow- up appointment, if applicable. Please Follow Up With: Kenny Rodriguez MD - [phone] When: Call to make a follow up appointment with your doctor in 1 week.
[2021-01-11] MEDS: oxyCODONE 5 MG Tablet PO (09:04)
[2021-01-11] MEDS: buPROPion (XL) 150 MG TABLET.XL PO (09:04)
[2021-01-11 09:05] VITALS: BP 104/54; PULSE 72; RESP 16; TEMP 36.5; O2SAT 98
--- NOTE | 2021-01-11 12:04 | PHA.DC.MR ---
Pharmacy Service has performed discharge medication reconciliation for this patient. The patient's discharge medication list was reviewed for discrepancies and discrepancies were resolved. Home Medications Bupropion HCl [Wellbutrin Xl] 150 mg PO BREAKFAST 30 Days #30 tab.er.24h 12/22/20 Oxycodone HCl/Acetaminophen [Percocet 5/325] 1 - 2 tablet PO Q4H PRN PRN 5 Days #30 tablet 01/10/21
== END 2021-01-11 11:25 | disposition home or self-care (01) ==
LOC: ED 19:55 → SDC 21:20 → MS3 22:59
PROVIDERS: Admitting Provider Surgery; Emergency Provider Emergency Medicine; Visit Provider Surgery
PROC: 0DTJ4ZZ Resection of Appendix, Percutaneous Endoscopic Approach (ICD-10-PCS; CPT 44970; principal; 2021-01-10 21:05)
DX: K35.20 Acute appendicitis with generalized peritonitis, without abscess (principal); F31.9 Bipolar disorder, unspecified; F41.1 Generalized anxiety disorder; F43.10 Post-traumatic stress disorder, unspecified; Z79.899 Other long term (current) drug therapy
CPT/HCPCS: 00840; 44970; 74177; 80053; 81001; 81025; 85025; 87426; 88304; 96361; 96365; 96366; 96375; 96376; 99218; 99251; 99284; 99406; J7030; Q9967; C1760; G0378; G0463; J2405

== ENCOUNTER 2021-01-24 09:00 | Outpatient (RCR) | payer BC, SELFPAY ==
[2021-01-10 23:24] VITALS: BMI 25.8
--- NOTE | 2021-01-24 09:03 | BH.SGPN.GN ---
Behaviors/Verbalizations/Mental Status: []Eye contact is fair to good. Motor activity is appropriate. Appearance is casual, appearing disheveled. Speech is Appropriate. Mood is depressed and anxious. Affect is congruent. Thoughts are linear and logical. No evidence of psychosis. Reviewed daily check in sheet and pt denies any active SI, plan, or intent as of this date, 01/24/21 Client Response/Progress/Benefit: []Pt was attentive though a mostly passive participant in group discussion, willing to share with group. Reports emotion for today is ?confused, distracted, and overwhelmed?. Client shared that this is due to having a lot of stressors this week as she has finals for class. Noted struggling to find time for self-care. Receptive of group suggestions on self-care strategies that can be completed in 10 minutes or less. Identified taking time to sit outside for a few minutes and just breath as a potential skill she can use throughout the day. Went on to identify her relationship with her as a major stressor as well. Shared struggling with a lot of resentment towards him and knowing that she may need to set a boundary but is struggling to do so. Noted this as having significant negative effects on her mental health as well but is working with individual therapist on this. Benefited from group support, feedback, and encouragement. Will continue in IOP to maintain gains, further improve boundaries and application of self-care, and prevent decompensation. Narrative Note: []
--- NOTE | 2021-01-24 10:08 | BH.SGPN.GN ---
This psychotherapy group was provided via telehealth using two-way, real-time interactive telecommunication technology between the patients and the provider. The interactive telecommunication technology included audio and video. The patient was offered telemedicine as an option for care delivery during the COVID-19 pandemic and consented to this option. Patient location: [place] Provider located at [facility] Behaviors/Verbalizations/Mental Status: []Client alert and oriented, casually dressed and groomed. Eye contact good. Motor activity appropriate. Speech within normal limits. Affect constricted, mood anxious. Thoughts linear, logical, no signs of hallucinations or delusions. Client Response/Progress/Benefit: []Pt responded well to session AEB listening and taking notes during discussion. Pt connected with quote about how being flexible can improve resilience. Pt stated that past experiences and trauma can impact a person?s resiliency. Pt worked with the group during discussion of the costs of resisting change and the benefits of adapting to adversity. Group identified costs of resisting change included: staying stuck, poor functioning, increased depression, increased anxiety, and increased negative self-talk. Attentive during psychoeducation on various melo factors in developing personal resilience. Pt contributed during group discussion identifying benefits of each factor in fostering resilience. Pt seemed to benefit from increasing awareness of strategies to increase personal resilience and the impacts of resilience on managing mental health sx. Will continue IOP tx to promote the use of healthy coping skills, increase self-care, and learn healthy boundaries. Narrative Note: []
--- NOTE | 2021-01-24 11:08 | BH.SGPN.GN ---
This psychotherapy group was provided via telehealth using two-way, real-time interactive telecommunication technology between the patients and the provider. The interactive telecommunication technology included audio and video. The patient was offered telemedicine as an option for care delivery during the COVID-19 pandemic and consented to this option. Patient location: [place] Provider located at [facility] Behaviors/Verbalizations/Mental Status: []Client alert and oriented, casually dressed and groomed. Eye contact good. Motor activity appropriate. Speech within normal limits. Affect constricted, mood anxious. Thoughts linear, logical, no signs of hallucinations or delusions. Client Response/Progress/Benefit: []Client responded well to session, engaged and participated throughout discussion. Client participated in the discussion of how each resiliency component can help increase personal resiliency. Client worked with group to identify ways to practice each of the resiliency traits reviewed. Provided personal examples. Client shared belief she has resilience trait of self-awareness or her warning signs and triggers. Client would like to work the resiliency trait of taking decisive action by deciding what choice client wants to make within her marriage by this Sunday. Will continue IOP tx to prevent decompensation, improve daily functioning ,and increase self-love. Narrative Note: []
--- NOTE | 2021-01-27 16:42 | BH.MDN_ITS ---
Multi-Disciplinary Note - Note 60-min Individual Time Started:: 13:00 Date: 01/27/21 Purpose of session/treatment goals addressed:: Purpose of session was to focus on goals 1 and 2 from master treatment plan. Symptoms/Behavior:: This psychotherapy group was provided via telehealth using two-way, real-time interactive telecommunication technology between the patients and the provider. The interactive telecommunication technology included audio and video. The patient was offered telemedicine as an option for care delivery during the COVID-19 pandemic and consented to this option. Patient location: [place]. Provider located at [facility] Eye Contact:: Fair Motor Activity:: Appropriate Appearance:: Casual Speech:: Appropriate Mood:: Anxious, Dysthymic Affect:: Congruent Thoughts:: Linear, Logical, No evidence of hallucinations/delusions noted Staff Interventions:: Therapist used open ended questiosn to elicit pt's current symptoms and stressors. Processed recent stressor with . Reviewed impact past with has on current anxiety and mood. Assisted pt with identifying strategies to help with her decreased motivation and concentration. Elicited small goal for the week. Client Response:: Pt reported she communicated to her that she is frustrated with their relationship and is unsure she can keep doing this. Pt stated she explained to him in more detail what exactly is frustrating and how she does't know if she will ever be able to let go his past infidelities. Pt stated she was surprised by her 's response because she thought he would be very defensive and mean. Pt reported he was more logical and understanding. Pt stated her is wanting her to wait until he is able to move to [place] in July so he has a better opportunity to prove himself to her. Pt reported she can understand his perspective but recognizes she needs to decide even if he does show her that he can be trustworthy can she really let go of the resentment that has built over the years of unfaithfulness from him. pt identified often feeling anxious about what he is doing and if he is talking with another girl. pt unsure what he can do from such a long distance to start building trust back. Pt stated she will reflect and discuss further with . Pt reported additional problem has been difficulty with motivation and concentration. Stated her home is a mess and can't seem to stay focused enough to get anything done. Pt connected with therapist strategy to focus on one room for 10 minutes each day. Pt reported she will work on that over the next week. Risks/Concerns:: Denies suicidal ideation, plan or intention to date. Progress Toward Goals/Plan:: Progress noted with pt repoting decreased depress mickie symptoms and less anxiety about various areas. Continues to report anxiety about her marriage, low motivation, and poor concentration with impacting completing some of her ADL's. Pt to continue IOP to continue use of healthy coping, challenge distorted thoughts and prevent decompensation. Time Stopped:: 13:55
--- NOTE | 2021-02-02 09:00 | BH.SGPN.GN ---
Behaviors/Verbalizations/Mental Status: [] Eye contact is good. Motor activity is appropriate. Appearance is disheveled. Speech is Appropriate. Mood is depressed. Affect is flat. Thoughts are linear and logical. No evidence of psychosis. Reviewed daily check in sheet and no reports of suicidal ideations or intent. Client Response/Progress/Benefit: [] Pt participated when prompted. Attentive at times. 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 Also attended a social event with daughter last night. Reports several psychosocial stressors which include losing childcare for son, house being in disarray, and difficulty accomplishing goals. Emotion for today is neutral. Check was brief and somewhat superficial. Contines to struggle with depression and stress. Limited benefit noted. Benefited from group support and encouragement. Will continue in IOP to increase healthy coping and prevent decompensation. Narrative Note: [] This psychotherapy group was provided via telehealth using two-way, real-time interactive telecommunication technology between the patients and the provider. The interactive telecommunication technology included audio and video. The patient was offered telemedicine as an option for care delivery during the COVID-19 pandemic and consented to this option. Patient location: [place] Provider located at [facility]
--- NOTE | 2021-02-02 11:12 | BH.SGPN.GN ---
This psychotherapy group was provided via telehealth using two-way, real-time interactive telecommunication technology between the patients and the provider. The interactive telecommunication technology included audio and video. The patient was offered telemedicine as an option for care delivery during the COVID-19 pandemic and consented to this option. Patient location: [place] Provider located at [facility] Behaviors/Verbalizations/Mental Status: [] Client alert and oriented, casually dressed and groomed. Eye contact fair to good. Motor activity appropriate. Speech within normal limits, quiet. Affect congruent, mood anxious and depressed. Thoughts linear, logical, no signs of hallucinations or delusions Client Response/Progress/Benefit: []Client responded well to session, taking notes, though remaining a mostly passive participant throughout. Did well to connect with the examples suggested by fellow participants, however continues to struggle with engagement since attending telehealth rather than in-person. Group discussed the different categories of coping skills which included distraction, emotional release, grounding, self-love, and thought challenging. Client participated in creating a coping skills ?menu? from the five categories of coping skills, however opted not to share her own personal coping skills menu. Client noted she wants to get better at using emotion regulation and thought challenge skills on a more consistent basis. Appeared to benefit from increasing repertoire of healthy coping skills. Will continue tx to improve daily functioning, increase healthy coping skill application, and further improve mental health sx management. Narrative Note: []
--- NOTE | 2021-02-02 12:22 | PCM.BH.PN ---
Progress Note Progress Note: History of Present Illness/Interim History: [] The patient is a 25-year-old female who was seen in follow-up by telehealth in the [facility] behavioral health IOP program. I last saw the patient about 1 month ago and she has been taking the Wellbutrin XL that I prescribed for about 1 month now. Patient has had some stresses in the last month including having to had her appendix out and being stressed by final exams and her schooling last week. She also continues to work on her marital issues with her working in [place] but planning to move home by July. Also he is visiting soon and they are discussing there is state of their marriage. They have talked about divorce but the patient says that for now they are taking their marriage day by day and she states that she is trying to work on her part in their marital issues. She is tolerating the Wellbutrin well with no side effects. She sometimes gets a mild headache towards the end of the day but feels this is more related to studying than medication. Her mood she describes as pretty good. She denies any symptoms of frank. Her sleep is much improved on the Wellbutrin but then her primary care doctor started her on Strattera for her ADD and this disrupted her sleep several days ago. She took the Strattera only a few days and is going to stop it because she states that it makes her tired and nauseated. She denies any passive thoughts of or suicidal or homicidal ideation. She denies hallucinations or delusions. She is functioning well at home, at the IOP and in her school studies. Current Psychiatric Medications: [] Wellbutrin XL 150 mg p.o. every morning (x1 month); melatonin 10 mg p.o. nightly; Strattera prescription given by her primary care doctor 4 days ago but she stopped it after several days because it makes her tired and nauseated. Mental Status Examination: [] Patient is a 25-year-old female who is seen via telehealth and is casually dressed and groomed with good hygiene. She has no psychomotor agitation or retardation. Eye contact is good and speech is normal rate and rhythm and fluent with no pressure. Mood is euthymic. Affect is minimally constricted to normal. Thought process is goal-directed and organized. Thought content: There is no evidence of passive thoughts of , suicidal or homicidal ideation, hallucinations or delusions. There is no evidence of frank. Judgment is intact. Insight is good. Impulsivity is low. Diagnoses: [] [place] I: [] Bipolar, NOS (F 31.9; generalized anxiety disorder; PTSD; trichotillomania [place] II: [] Negative [place] III: [] Negative [place] IV:[]] Primary support issues Plan: [] The patient will continue the IOP program as the structure, support, education, and group therapy will hopefully prevent worsening of the patient's symptoms. She felt safe during the interview and if it anytime she does not feel safe she agrees to let us know or go to the emergency room. The risks, options, and possible complications and side effects of the medications were again discussed with the patient and she understands and accepts these. No medication changes were made today. The patient wants to stay off the Strattera that she stopped several days ago. She will continue her other medications as directed. She will continue to follow-up with her outpatient psychiatric and medical providers.
--- NOTE | 2021-02-02 14:25 | BH.MDN ---
Multi-Disciplinary Note - Note 60-min Individual Time Started:: 10:08 Date: 02/02/21 Purpose of session/treatment goals addressed:: Purpose of session was to focus on goals 1 and 2 from master treatment plan. Eye Contact:: Good Motor Activity:: Appropriate Appearance:: Casual Speech:: Appropriate Mood:: Euthymic Affect:: Congruent Thoughts:: Linear, Logical, No evidence of hallucinations/delusions noted Staff Interventions:: Therapist used open ended questions to elicit pt's current symptoms and stressors. Therapist reviewed homework from last session. Processed challenges with and having limited support. Reviewed strategies to help increase ability to complete tasks at her house that make her feel overwhelmed. Provided pt with referrals to psychiatry and counseling. Client Response:: Pt reported things are good for the most part. Pt stated she has been talking to her about his patterns of behavior with impulsivity, buying things, getting more done then having weeks of doing nothing. Pt reported her could connect with this because he has noticed a few days ago he couldn't get out of bed but within the last two days he has been up really early, being productive and having the urge to spend money. Pt reported she urged her to talk to his pychiatrist to make sure nothing else is going on. Pt reported she accomplished goal of spending 10 minutes a day in her kitchen, living room and dining room. Pt reported she struggles with cleaning the bedrooms because it's overwhelming. Pt connected with technique of doing 10 minutes of cleaning in one area of her room to help her see progress. Pt identified that has her goal for the week. Pt agreeable to contact recommended counseling agency and psychiatry to get established. Risks/Concerns:: Denies suicidal ideation, plan and intent. Progress Toward Goals/Plan:: Progress noted with pt reporting improved mood, decreased anxiety and following through with goals. Pt continues to report difficulty completing some tasks at home due to get easiliy overwhelmed. Pt to continue IOP to maintain gains, continue challenge distorted thoughts and prevent decompensation. Time Stopped:: 10:58
--- NOTE | 2021-02-04 09:03 | BH.SGPN.GN ---
This psychotherapy group was provided via telehealth using two-way, real-time interactive telecommunication technology between the patients and the provider. The interactive telecommunication technology included audio and video. The patient was offered telemedicine as an option for care delivery during the COVID-19 pandemic and consented to this option. Patient location: [place] Provider located at [facility] Behaviors/Verbalizations/Mental Status: []Pt eye contact good, casually dressed, motor activity appropriate, speech normal rate and tone, mood euthymic, congruent affect, thoughts linear and intact, no evidence of delusions or hallucinations. Patient indicated no suicidal ideation, plan or intent on daily symptom tracker. Client Response/Progress/Benefit: [] Patient receptive of session, engaged throughout AEB sharing thoughts and feelings with group. Identified emotion for the day as ?optimistic?, noting this is in part due to reduced stress as it is the end of the school semester. Patient went on to report she has been considering not returning to school in the fall as it had been a particularly difficult semester for her mental health and client has limited supports in the area. Discussed disappointment in the amount of assistance her family had provided but did well to identify that this is not a reflection on her. Shared a current positive as well as stressor is that her plans on coming to visit in February. Pt expressed that the additional help with her children will be a positive but that she and her have a difficult relationship. Discussed use of thought challenging and making efforts to incorporate more daily self-care activities. Continues to struggle with boundaries, emotion regulation, and minimization of sx which impact progress and reinforce depressive sx. Patient to continue IOP to promote healthy change behaviors, continue to improve sx management, and prevent decompensation. Narrative Note: []
--- NOTE | 2021-02-04 11:15 | BH.SGPN.GN ---
Addendum entered and electronically signed by Maribell Pereyra [facility] 02/04/21 16:02: This psychotherapy group was provided via telehealth using two-way, real-time interactive telecommunication technology between the patients and the provider. The interactive telecommunication technology included audio and video. The patient was offered telemedicine as an option for care delivery during the COVID-19 pandemic and consented to this option. Patient location: [place]. Provider located at [facility] Original Note: Behaviors/Verbalizations/Mental Status: []Client alert and oriented, casually dressed and groomed. Eye contact fair. Motor activity appropriate. Speech within normal limits. Affect congruent. Mood euthymic. Thoughts linear, logical, no signs of hallucinations or delusions. Client Response/Progress/Benefit: []Client engaged participant AEB pt providing input throughout discussion, engaged in activity and appeared to listen attentively to peers. Appeared to listen ideas on how to cope with internal barriers that keep clients stuck from moving towards goals. Client able to identify barriers to desired reality which includes: time, distance, past trauma and individual mental health. Client stated she wants to focus on thought challenge to work on barrier to negative self-talk. Benefited from group by identifying obstacles and solutions to desired reality. Will continue IOP tx to continue use of healthy coping skills, challenge distorted thoughts and prevent decompensation. Narrative Note: []
--- NOTE | 2021-02-09 09:03 | BH.SGPN.GN ---
Behaviors/Verbalizations/Mental Status: []Client alert and oriented, casually dressed and groomed. Eye contact good. Motor activity appropriate. Speech within normal limits. Affect congruent, mood euthymic. Thoughts linear, logical, no signs of hallucinations or delusions. Reviewed client?s symptom tracker, no risk for suicidal ideation, plan, or intent as of 02/09/21 Client Response/Progress/Benefit: [] Client responded well to session, attentive and engaged. Client reports feeling happy and excited this morning. Client stated that she is looking forward to spending time outdoors with her son and discussed plans to practice self-care this afternoon. 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 Client expressed this helped her to challenge negative thoughts of not being a ?good enough mom? due to being on the computer a lot for school recently. Shared negative thoughts have been an ongoing stressor but that she is making progress in improving her ability to manage these thoughts. Additional skills used include opposite action, positive self-talk, and making time for self-care. Appeared to benefit from reflecting on her progress. Will continue IOP tx to promote gains, further decrease negative self-talk, and improve daily functioning. Narrative Note: []
--- NOTE | 2021-02-09 10:10 | BH.SGPN.GN ---
This psychotherapy group was provided via telehealth using two-way, real-time interactive telecommunication technology between the patients and the provider. The interactive telecommunication technology included audio and video. The patient was offered telemedicine as an option for care delivery during the COVID-19 pandemic and consented to this option. Patient location: [place]. Provider located at [facility] Behaviors/Verbalizations/Mental Status: []Client alert and oriented, casually dressed and groomed. Eye contact fair. Motor activity appropriate. Speech within normal limits. Affect congruent. Mood euthymic. Thoughts linear, logical, no signs of hallucinations or delusions. Behaviors/Verbalizations/Mental Status: [] Client Response/Progress/Benefit: []Pt responded well to session AEB pt providing input and listening attentively to peers. Worked with group to identify external barriers that can keep us stuck include: intrusive thoughts, anxiety, outside stressors, past trauma, environment, work place, and mental health. Worked with group to identify internal barriers that keep us stuck include: fear of failure, avoidance, negative self-talk, shut down, avoidance, sleep, using substances, and other unhealthy coping skills. Attentive during discussion about underlying thoughts behind what keeps people stuck and maintenance cycle. Seemed to benefit from increased awareness of negative thoughts keeping her stuck. Pt to continue IOP to maintain gains and prevent decompensation. Narrative Note: []
--- NOTE | 2021-02-09 11:33 | BH.MDN ---
Multi-Disciplinary Note - Note 30-min Individual Time Started:: 11:34 Date: 02/09/21 Client Response:: Pt reported feeling better, especially since school is over. Pt stated status quo with relationship with .
--- NOTE | 2021-02-11 09:00 | BH.SGPN.GN ---
Behaviors/Verbalizations/Mental Status: [] Eye contact is good. Motor activity is appropriate. Appearance is casual. Speech is Appropriate. Mood is anxious. Affect is congruent. Thoughts are linear and logical. No evidence of psychosis. Reviewed daily check in sheet and no reports of suicidal ideations or intent. Client Response/Progress/Benefit: [] Pt was an active participant in group discussion. Attentive. Provided appropriate feedback. Shared that today is her last day in [facility]. She has set up her aftercare and is looking forward to meeting consistently with a therapist and getting more in-depth with her issues. 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 Positive and future-orieinted. Feels that she has improved on managing her internal stressors and is working on accepting certain external stressors. Progress noted per pt report. Benefited from group encouragement, support, and feedback. Will be discharged from [facility] today. Narrative Note: []
--- NOTE | 2021-02-11 10:12 | BH.SGPN.GN ---
Behaviors/Verbalizations/Mental Status: []Client alert and oriented, casually dressed, hygiene appeared to be tended to. Eye contact fair. Motor activity appropriate. Speech within normal limits. Affect congruent. Mood euthymic. Thoughts linear, logical, no signs of hallucinations or delusions. Client Response/Progress/Benefit: []Client responded well to session, attentive and engaged throughout discussion and activity. Client worked with group to identify impacts of fearing failure. Assisted group with identifying how fear of failure can form which includes: past failures, family dynamics, comparing self to others, and high expectations. Client stated negative self-talk can reinforce fear of failure and can lead to a self fulfilling prophecy. Client seemed to connect how failures can lead to positive changes. Client appeared to benefit from gaining awareness of the impact fear of failure can have on one?s mental health and wellbeing. Client has made significant treatment progress and will discharge from [facility] today. Narrative Note: []
--- NOTE | 2021-02-11 12:06 | BH.DS ---
Discharge Summary - Demographics Discharge Date: 02/11/21 Presenting Problems at Admission:: Pt self-referred to [facility] due to increasing depression and anxiety over the past few months. Endorsed depressed mood with low motivation, isolation, crying, hopelessness, guilt, decreased sleep, low energy, and decreased concentration. Pt reported passive thoughts of , denied active suicidal ideation, plan or intention. Endorsed negative ruminations and panic attacks about one time per week. Pt?s mental health symptoms interfering with social, familial and home functioning. Discharge Diagnoses:: Bipolar, NOS (F 31.9; generalized anxiety disorder; PTSD; trichotillomania Reason for Discharge:: Pt has made significant treatment progress and no longer meets medical necessity for [facility] level of care.
== END 2021-02-11 13:44 | disposition home or self-care (01) ==
LOC: BHIOP 09:00
PROVIDERS: Referring Provider Psychiatry & Neurology Psychiatry; Visit Provider Psychiatry & Neurology Psychiatry
DX: F31.9 Bipolar disorder, unspecified (principal); F41.1 Generalized anxiety disorder; F43.10 Post-traumatic stress disorder, unspecified; F63.3 Trichotillomania; Z79.899 Other long term (current) drug therapy
CPT/HCPCS: H0035; 90832; 90837; 90853

== ENCOUNTER → 2021-02-16 09:43 | Outpatient (CLI) | payer BC, SELFPAY ==
[2021-02-16 09:17] VITALS: BMI 25.8
[2021-02-16 13:07] LABS: T4 Free Direct 0.91 ng/dL (0.76-1.46); Thyroid Stim Hormone (TSH) 2.65 uIU/mL (0.358-3.74)
== END ==
PROVIDERS: PCP Internal Medicine; Referring Provider Internal Medicine; Visit Provider Internal Medicine
DX: F32.9 Major depressive disorder, single episode, unspecified (principal); F41.9 Anxiety disorder, unspecified
CPT/HCPCS: 36415; 84439; 84443

== ENCOUNTER → 2021-02-24 09:46 | Outpatient (CLI) | payer BC, SELFPAY ==
[2021-02-16 09:17] VITALS: BMI 25.8
--- NOTE | 2021-02-24 09:50 | US_ITS ---
STUDY: THYROID ULTRASOUND REASON FOR EXAM: Female, 25 years old. FU Thyroid Nodule TECHNIQUE: Ultrasound evaluation of the thyroid was performed with real-time and static carter-scale imaging. COMPARISON: None. FINDINGS: RIGHT LOBE: The right lobe of the thyroid gland is enlarged and measures 5.1 signed by 1.6 cm x 1.5 cm. There is a homogeneous echotexture. There is a 1.5 cm x 1.1 cm x 1.3 cm complex solid nodule in the midpole anteriorly of the right lobe. Correlation with a nuclear medicine thyroid scan and uptake examination is recommended. LEFT LOBE: The left lobe of the thyroid gland measures 4.2 cm x 1.2 cm x 1.1 cm. There is a homogeneous echotexture. There are no demonstrated solid, cystic or complex lesions. ISTHMUS: The isthmus measures 2 mm. The regional lymph nodes are normal. US/Thyroid IMPRESSION: Enlargement of the right lobe of the thyroid with a 1.5 cm x 1.1 cm x 1.3 cm complex solid nodule in the midpole. Correlation with a nuclear medicine uptake and thyroid scan recommended. Electronically Signed: Will Kay MD at 15:02 EDT , Service support ,
== END ==
PROVIDERS: PCP Internal Medicine; Referring Provider Internal Medicine; Visit Provider Internal Medicine
DX: E04.1 Nontoxic single thyroid nodule (principal)
CPT/HCPCS: 76536

== ENCOUNTER → 2021-03-09 09:53 | Outpatient (CLI) | payer BC, SELFPAY ==
[2021-02-16 09:17] VITALS: BMI 25.8
--- NOTE | 2021-03-09 09:56 | NM_ITS ---
CLINICAL: 25-year-old female with reported history of thyroid nodularity. I-123 THYROID UPTAKE and SCAN COMPARISON: Thyroid ultrasound report 02/24/2021 FINDINGS: The patient was administered a 295 uCi I-123 capsule by mouth. The 4-hour I-123 radioactive iodine thyroidal uptake was calculated to be 12.8 % (normal 5 to 25 %). The 24-hour I-123 radioactive iodine thyroidal uptake was calculated to be 33.9 % (normal 5 to 40 %). The I-123 thyroid scan demonstrates homogeneous radiopharmaceutical concentration throughout both lobes of a U -shaped thyroid gland. There are no colloidal parenchymal hypofunctioning cold nodules noted in either lobe of the thyroid gland. NM/Thyroid Uptake Single or Mult IMPRESSION: 1. NORMAL 4- and 24-hour I-123 radioactive iodine thyroidal uptakes. 2. The I-123 thyroid scan is consistent with stage I nodular colloid goiter secondary to the presence of isthmus radiopharmaceutical concentration. (Angela et al, J Nucl Med 32: 1455, 1991). 3. No hypofunctioning-cold nodules are identified with meticulous attention paid to the mid pole right lobe thyroid colloid. Electronically Signed: Jarad Mccauley DO at 21:39 EDT Tel , Service support ,
== END ==
PROVIDERS: PCP Internal Medicine; Referring Provider Internal Medicine; Visit Provider Internal Medicine
DX: E04.1 Nontoxic single thyroid nodule (principal)
CPT/HCPCS: 78012; A9516

== ENCOUNTER → 2021-03-14 10:12 | Outpatient (CLI) | payer BC, SELFPAY ==
[2021-03-14 09:10] VITALS: BMI 25.8
[2021-03-14 13:13] LABS: Amphetamine Urine VISTA NEGATIVE (<1000 ng/mL); Barbiturate Urine VISTA NEGATIVE (< 200 ng/mL); Benzodiazepine Urine VISTA NEGATIVE (< 200 ng/mL); Cocaine Urine VISTA NEGATIVE (< 300 ng/mL); Ecstacy Urine VISTA NEGATIVE (< 500 ng/mL); Methadone Urine VISTA NEGATIVE (< 300 ng/mL); PCP Urine VISTA NEGATIVE (< 25 ng/mL); THC Urine VISTA NEGATIVE (< 50 ng/mL); Vista UDS pH Range 6
== END ==
PROVIDERS: Physician Assistant; PCP Internal Medicine; Visit Provider Internal Medicine
DX: F90.9 Attention-deficit hyperactivity disorder, unspecified type (principal)
CPT/HCPCS: 80307

== ENCOUNTER → 2021-03-16 10:45 | Outpatient (CLI) | payer BC, SELFPAY ==
[2021-03-14 09:10] VITALS: BMI 25.8
--- NOTE | 2021-03-16 10:46 | EKG12_ITS ---
Test Reason : MEDICATION Blood Pressure : / mmHG Vent. Rate : 087 BPM Atrial Rate : 087 BPM P-R Int : 124 ms QRS Dur : 094 ms QT Int : 366 ms P-R-T Axes : 049 086 038 degrees QTc Int : 440 ms Normal sinus rhythm Normal ECG Confirmed by BON NOVA, AJIT ([id number]), makeup editor SAI GLORIA ([id number]) on 03/17/2021 12:24:00 PM Referred By: So Villalpando Confirmed By:AJIT CROCKETT MD
== END ==
PROVIDERS: PCP Internal Medicine; Referring Provider Physician Assistant; Visit Provider Physician Assistant
DX: F41.9 Anxiety disorder, unspecified (principal); F32.9 Major depressive disorder, single episode, unspecified; F90.9 Attention-deficit hyperactivity disorder, unspecified type
CPT/HCPCS: 93005